=== PATIENT | female | born 1975 | race Caucasian/White ===

== ENCOUNTER 2016-10-13 08:29 | Day surgery (SDC) | payer OTHER ==
[~2016-10-13] VITALS: Ht 165.1 cm; Wt 80.3 kg
[2016-10-13 10:07] VITALS: Ht 165.1 cm; Wt 80.3 kg
[2016-10-13 10:39] VITALS: BP 124/72; PULSE 88; RESP 16
[2016-10-13] MEDS ORDERED: OMEP40CA6 PO (10:40)
[2016-10-13] MEDS ORDERED: FENTAnyl 50 MCG/ML VIAL ONE (11:21)
[2016-10-13] MEDS ORDERED: MIDAZOLAM 1 MG/ML 2 ML INJ ONE ×4 (11:21)
[2016-10-13 11:45] VITALS: BP 117/75; PULSE 76; RESP 18
[2016-10-13 12:00] VITALS: BP 108/68; PULSE 69; RESP 18
--- NOTE | 2016-10-13 17:12 | GILP ---
DATE OF PROCEDURE: PROCEDURE PERFORMED: EGD with biopsy. INDICATION: A 40-year-old female undergoing this procedure for persistent abdominal pain and heartb urn. The purpose is to evaluate upper GI tract and find out the cause of her symptoms. INFORMED CONSENT: The risk of the procedure, related and unrelated complications, anesthetic risks, alternatives discussed and informed consent was obtained. DESCRIPTION OF PROCEDURE: The patient was brought to the GI lab, sedated with 7 mg of Versed and 10 0 mg of fentanyl. After optimal sedation, scope was passed with much ease into esophagus, which was grossly within normal limits. Z line was at 37 cm, which was regular. Stomach mucosa revealed mil d gastritis. Multiple biopsies obtained. Duodenum, first and second part including ampulla, appear ed normal. Villi also were normal. Retroversion done in the stomach. No gross lesion was identifi ed. Scope was straightened out and removed with good patient tolerance. IMPRESSION: 1. Gastritis. 2. Normal esophagus. 3. Z line at 37 cm, which was normal. 4. Normal duodenum. PLAN: Review histopathology. We need to find out some other cause for her abdominal pain. Dictated By: YAMINI PATEL/SONJA Conf#: [id number] DID#: [id number] CC: YAMINI VIVAS MD;*EndCC*
== END 2016-10-13 11:53 | disposition home or self-care (01) ==
LOC: SDS 08:29 → GIL 08:29 → SDS 08:36
PROVIDERS: ATTEND Internal Medicine Gastroenterology
DX: K29.50 Unspecified chronic gastritis without bleeding (principal)
CPT/HCPCS: 43239; 84703; 88305; 88312; J2250; J3010; Z7610

== ENCOUNTER 2016-12-17 08:26 | Emergency (ER) | payer OTHER ==
[~2016-12-17] VITALS: Wt 77.0 kg
[~2016-12-17 08:26] MED LIST: OMEP40CA6 PO
[2016-12-17] MEDS ORDERED: ONDANSETRON (ODT) 4 MG TAB ODT STA (09:33)
[2016-12-17] MEDS ORDERED: KETOROLAC 30 MG INJ IM STA (09:33)
[2016-12-17 09:45] LABS: URINE BLOOD (Dip) POC 3+ (NEGATIVE)
--- NOTE | 2016-12-17 10:01 | ERD ---
ER Documentation Chief Complaint Date/Time DATE: 12/17/16 TIME: 09:58 Chief Complaint HEADACHE X5 DAYS, HX OF MIGRAINE HPI This is a 41-year-old female who presents to the emergency department today complaining of a headache for the past several days. Patient states she has a history of migraines. States that she is to take amitriptyline from her doctor but changed over to Excedrin because amitriptyline was not working. States she took Excedrin last night with no improvement. Patient states she has some light sensitivity, noise sensitivity and some nausea. Denies any fevers or chills, blurred vision ROS All systems reviewed and are negative except as per history of present illness. Medications Home Meds Active Scripts Naproxen* (Naprosyn*) 500 Mg Tablet, 500 MG PO BID Y for PAIN AND/OR INFLAMMATION, #30 TAB Prov:GOLDIE SORIANO PA-C 12/17/16 Acetamin/Butalbital/Caffeine* (Fioricet*) [id number] Tab, 1 TAB PO Q6H Y for PAIN, #30 TAB Prov:GOLDIE SORIANO PA-C 12/17/16 Reported Medications Omeprazole* (Omeprazole*) 40 Mg Capsule.dr, 40 MG PO DAILY, #30 CAP 10/13/16 Allergies Allergies: Coded Allergies: Penicillins (Verified Allergy, Mild, 12/17/16) amoxicillin (Verified Allergy, Mild, 12/17/16) PMhx/Soc History of Surgery: Yes (breast implants and btl) Anesthesia Reaction: Yes (nausea and vomiting) Hx Neurological Disorder: Yes (migrane ) Hx Respiratory Disorders: No Hx Cardiac Disorders: No Hx Psychiatric Problems: No Hx Miscellaneous Medical Probl: No Hx Alcohol Use: Yes (socially) Hx Substance Use: No Hx Tobacco Use: No Smoking Status: Never smoker Physical Exam Vitals Vital Signs Date Time Temp Pulse Resp B/P Pulse Ox O2 Delivery O2 Flow Rate FiO2 12/17/16 08:30 97.8 67 18 138/81 100 Physical Exam Const: Talkative, no acute distress Head: Atraumatic Eyes: Normal Conjunctiva. PERRLA. EOM intact. ENT: Normal External Ears, Nose and Mouth. Neck: Full range of motion..~ No meningismus. Resp: Clear to auscultation bilaterally Cardio: Regular rate and rhythm, no murmurs Abd: Soft, non tender, non distended. Normal bowel sounds Skin: No petechiae or rashes Neur: Awake and alert. Cranial nerves II through XII intact. No gait ataxia. Psych: Normal Mood and Affect Results 24 hrs Laboratory Tests Test 12/17/16 09:48 Bedside Urine Blood 3+ Bedside Urine Glucose (UA) Negative Bedside Urine Ketones (LAB) Negative Bedside Urine Leukocyte Esterase (L Negative Bedside Urine Nitrite (LAB) Negative Bedside Urine Protein (LAB) Negative Bedside Urine pH (LAB) 6.0 Current Medications Medications (Trade) Dose Ordered Sig/Regis Route PRN Reason Start Time Stop Time Status Last Admin Dose Admin Ketorolac Tromethamine (Toradol) 30 mg ONCE STAT IM 12/17/16 09:33 12/17/16 09:35 DC 12/17/16 09:45 Ondansetron HCl (Zofran Odt) 4 mg ONCE STAT ODT 12/17/16 09:33 12/17/16 09:35 DC 12/17/16 09:45 Diphenhydramine HCl (Benadryl) 12.5 mg ONCE ONCE IV 12/17/16 10:30 12/17/16 10:31 DC 12/17/16 10:36 Metoclopramide HCl 10 mg 10 mg ONCE ONCE IV 12/17/16 10:30 12/17/16 10:31 DC 12/17/16 10:35 Sodium Chloride (NS) 1,000 ml @ 1,000 mls/hr Q1H ONCE IV 12/17/16 10:30 12/17/16 11:29 DC 12/17/16 10:35 Procedures/MDM This is a 41-year-old female who presents to the emergency department today complaining of a headache for the past several days. Patient has a history of migraines. Given patient's history and the fact that she has no focal neurologic deficits and no gait ataxia I do not feel that she requires a head CT scan at this time. Low suspicion for acute hemorrhage, mass, or abscess. UA is negative for infection. There is 3+ blood. Patient indicated she was on her menstrual cycle currently. test is negative. Patient symptoms at this time is consistent with migraine headache. Patient was given a Toradol injection as well as Zofran here in the emergency department however headache persisted. I discussed the patient with Dr. Nina he recommended giving her IV fluids, Benadryl and Reglan. She reported feeling significantly better after this treatment. Patient will be given a prescription for Naprosyn, Fioricet for home. She has been instructed to follow back up with her primary care physician for possible referral to neurology. I will give her a list of resources for neurology. At this time the patient is stable for discharge and outpatient management. Patient should follow up with their PCP in the next 1-2 days. They may return to the emergency department sooner for any persistent or worsening of symptoms. Patient understood and agreed with the plan. Departure Diagnosis: Primary Impression: Headache Headache type: unspecified Headache chronicity pattern: unspecified pattern Intractability: not intractable Qualified Code: R51 - Nonintractable headache, unspecified chronicity pattern, unspecified headache type Condition: GOLDIE Ansari PA-C Dec 17, 2016 10:00
[2016-12-17] MEDS ORDERED: SOD CHLORIDE 0.9% 1,000 ML IV ONE (10:30)
[2016-12-17] MEDS ORDERED: METOCLOPRAMIDE 10 MG INJ IV ONE (10:30)
[2016-12-17] MEDS ORDERED: DIPHENHYDRAMINE 50 MG INJ IV ONE (10:30)
[2016-12-17] MEDS ORDERED: FIORICET PO (11:58)
[2016-12-17] MEDS ORDERED: NAPR-260 PO (11:59)
[2016-12-17 12:10] VITALS: BP 112/62; PULSE 75; RESP 18; TEMP 98.4
== END 2016-12-17 12:11 | disposition home or self-care (01) ==
LOC: FTE 08:26
DX: R51 Headache (principal); R11.0 Nausea
CPT/HCPCS: 81003; 96372; 96374; 96375; J1200; J1885; J2765; J7030; Z7502; Z7610

== ENCOUNTER 2017-02-15 06:55 | Emergency (ER) | payer OTHER ==
[~2017-02-15] VITALS: Ht 160 cm; Wt 76.0 kg
[~2017-02-15 06:55] MED LIST changes: +FIORICET PO; +NAPR-260 PO
[2017-02-15 06:57] VITALS: Ht 160 cm; Wt 76.0 kg
[2017-02-15] MEDS ORDERED: ONDANSETRON (ODT) 4 MG TAB ODT STA (07:22)
[2017-02-15] MEDS ORDERED: ACETAMINOPHEN 500 MG TAB PO STA (07:26)
--- NOTE | 2017-02-15 07:42 | ERD ---
ER Documentation Chief Complaint Date/Time DATE: 02/15/17 TIME: 07:35 Chief Complaint fever , vomiting , sore throat HPI This a 41-year-old female who presents the emergency department today complaining of sore throat,, headache vomiting, and itchiness on her skin from bug bites that started last night. Patient states that she was in [place] and went back to her home country of [facility] for the last week. States that she has gone to the bathroom multiple times but denies any diarrhea. States she has some crampy abdominal pain. States she felt chilled but denies any fevers, joint pain. Denies any dysuria. ROS All systems reviewed and are negative except as per history of present illness. Medications Home Meds Active Scripts Ciprofloxacin Hcl* (Ciprofloxacin Hcl*) 500 Mg Tablet, 500 MG PO BID for 3 Days , TAB Prov:GOLDIE SORIANO PA-C 02/15/17 Cetirizine Hcl* (Zyrtec*) 10 Mg Capsule, 10 MG PO DAILY, #10 TAB.CHEW Prov:GOLDIE SORIANO PA-C 02/15/17 Acetaminophen* (Tylophen*) 500 Mg Capsule, 1 CAP PO Q6H Y for PAIN AND OR ELEVATED TEMP, #30 CAP Prov:GOLDIE SORIANO PA-C 02/15/17 Ibuprofen* (Motrin*) 600 Mg Tab, 600 MG PO Q6, #30 TAB Prov:GOLDIE SORIANO PA-C 02/15/17 Electrolyte,Oral (Pedialyte) 1,000 Ml Solution, 100 ML PO Q6 Y for vomiting, # 1000 ML Prov:GOLDIE SORIANO PA-C 02/15/17 Hydrocortisone* Topical (Hydrocortisone* Topical) 1%-28.35 Gm Cream..g., 1 APPLIC TOP Q6 Y for ITCHING, #1 TUB Prov:GOLDIE SORIANO PA-C 02/15/17 Ondansetron Hcl* (Zofran*) 4 Mg Tablet, 4 MG PO Q6H for NAUSEA AND/OR VOMITING, #30 TAB Prov:GOLDIE SORIANO PA-C 02/15/17 Diphenhydramine Hcl* (Benadryl*) 25 Mg Cap, 25 MG PO Q6, #30 CAP Prov:GOLDIE SORIANO PA-C 02/15/17 Naproxen* (Naprosyn*) 500 Mg Tablet, 500 MG PO BID Y for PAIN AND/OR INFLAMMATION, #30 TAB Prov:GOLDIE SORIANO PA-C 12/17/16 Acetamin/Butalbital/Caffeine* (Fioricet*) [id number] Tab, 1 TAB PO Q6H Y for PAIN, #30 TAB Prov:GOLDIE SORIANO PA-C 12/17/16 Reported Medications Omeprazole* (Omeprazole*) 40 Mg Capsule.dr, 40 MG PO DAILY, #30 CAP 10/13/16 Allergies Allergies: Coded Allergies: Penicillins (Verified Allergy, Mild, 12/17/16) amoxicillin (Verified Allergy, Mild, 12/17/16) PMhx/Soc History of Surgery: Yes (breast implants and btl) Anesthesia Reaction: Yes (nausea and vomiting) Hx Neurological Disorder: Yes (migrane ) Hx Respiratory Disorders: No Hx Cardiac Disorders: No Hx Psychiatric Problems: No Hx Miscellaneous Medical Probl: No Hx Alcohol Use: Yes (socially) Hx Substance Use: No Hx Tobacco Use: No Physical Exam Vitals Vital Signs Date Time Temp Pulse Resp B/P Pulse Ox O2 Delivery O2 Flow Rate FiO2 02/15/17 06:57 98.1 79 16 127/77 98 Physical Exam Const: Nontoxic-appearing Head: Atraumatic Eyes: Normal Conjunctiva ENT: Ears TMs normal. Nose no drainage. Throat no erythema no exudate. Drainage posterior pharynx peer Neck: Full range of motion..~ No meningismus. Resp: Clear to auscultation bilaterally Cardio: Regular rate and rhythm, no murmurs Abd: Soft, crampy periumbilical tenderness non distended. Normal bowel sounds no right lower quadrant pain. No tenderness McBurney's. No left lower quadrant pain. Skin: No petechiae or rashes. Multiple small bug bite on left arm Neur: Awake and alert Psych: Normal Mood and Affect Results 24 hrs Current Medications Medications (Trade) Dose Ordered Sig/Regis Route PRN Reason Start Time Stop Time Status Last Admin Dose Admin Ondansetron HCl (Zofran Odt) 4 mg ONCE STAT ODT 02/15/17 07:22 02/15/17 07:24 DC 02/15/17 07:26 Acetaminophen (Tylenol Tab) 500 mg ONCE STAT PO 02/15/17 07:26 02/15/17 07:27 DC 02/15/17 07:28 Procedures/MDM This a 41-year-old female who presents to the emergency department today with multiple complaints. Patient stated that she turned from [facility] last night when she started noticing the symptoms. On physical exam patient appears to have more crampy abdominal pain however she has no focal tenderness in the right lower quadrant and no tenderness McBurney's. She has no left lower quadrant pain. Low suspicion for acute surgical abdomen. Patient is not actively vomiting however I will give her Zofran and a p.o. challenge here in the emergency department. Patient's ENT exam is benign with the exception that the patient has laryngitis. I have seen this patient in the past and she did follow-up with her doctor in regards to her laryngitis but was never referred. Patient does have some drainage in her posterior pharynx and it may be secondary to allergic rhinitis however I have given patient a referral information for ENT specialist to further evaluate the laryngitis. Patient denies any difficulty swallowing. Patient also has multiple insect bites that were noticed on her left arm. Patient is afebrile and otherwise well-appearing. She has no rash or joint pain. She has no evidence of conjunctivitis and have low suspicion that patient has contracted Zika virus of [place] or dengue. Patient was given Zofran, Tylenol and a p.o. challenge here in the emergency department. Patient was not actively vomiting. Prior to discharge patient was complaining of a headache. Patient was given a prescription for Zyrtec, Motrin, Pedialyte, Zofran, Tylenol. Given that patient has recently traveled out of the country I did give the patient a prescription for Cipro and explained to her that she should only take the Cipro if she develops diarrhea. Patient was also given a prescription for Benadryl and hydrocortisone cream for her insect bites. I did not give patient Benadryl here in the emergency department as she was driving herself At this time the patient is stable for discharge and outpatient management. Patient should follow up with their PCP in the next 1-2 days. They may return to the emergency department sooner for any persistent or worsening of symptoms. Patient understood and agreed with the plan. Departure Diagnosis: Primary Impression: Multiple complaints Condition: GOLDIE Ansari PA-C February 15, 2017 07:42
[2017-02-15] MEDS ORDERED: ONDA4TAB8 PO (08:41)
[2017-02-15] MEDS ORDERED: BEN25 PO (08:41)
[2017-02-15] MEDS ORDERED: HC1C30 TOP (08:42)
[2017-02-15] MEDS ORDERED: ELEC100080 PO (08:42)
[2017-02-15] MEDS ORDERED: ACET500C5 PO (08:43)
[2017-02-15] MEDS ORDERED: IBUP-1542 PO (08:43)
[2017-02-15] MEDS ORDERED: CIPR500T4 PO (08:44)
[2017-02-15] MEDS ORDERED: CETI10CA PO (08:44)
== END 2017-02-15 08:56 | disposition home or self-care (01) ==
LOC: FTE 06:55
DX: R50.9 Fever, unspecified (principal); R11.10 Vomiting, unspecified; J02.9 Acute pharyngitis, unspecified; R51 Headache; S40.862A Insect bite (nonvenomous) of left upper arm, initial encounter; W57.XXXA Bitten or stung by nonvenomous insect and other nonvenomous arthropods, initial encounter; Y92.9 Unspecified place or not applicable
CPT/HCPCS: Z7502; Z7610; 99284

== ENCOUNTER 2017-09-25 08:22 | Emergency (ER) | payer OTHER ==
[~2017-09-25] VITALS: Ht 162.6 cm; Wt 76.0 kg
[~2017-09-25 08:22] MED LIST changes: +ACET500C5 PO; +BEN25 PO; +CETI10CA PO; +CIPR500T4 PO; +ELEC100080 PO; +HC1C30 TOP; +IBUP-1542 PO; +ONDA4TAB8 PO
[2017-09-25 08:25] VITALS: Ht 162.6 cm; Wt 76.0 kg
[2017-09-25] MEDS ORDERED: DIPHENHYDRAMINE 50 MG INJ IV ONE (10:30)
[2017-09-25] MEDS ORDERED: METOCLOPRAMIDE 10 MG INJ IV ONE (10:30)
[2017-09-25 10:54] LABS: URINE BLOOD (Dip) POC Trace-intact (NEGATIVE)
--- NOTE | 2017-09-25 10:54 | ERD ---
ER Documentation Chief Complaint Chief Complaint vomiting since last night , rt side headcahe HPI 41-year-old female who presents emergency department for right-sided headache that started gradually with unknown specific time and date of onset, vomiting since last night. Stated that she has this kind of headache before when she has her migraine attacks. Also complains of nasal congestion, throat pain. Also added that she usually gets some IV fluids, Reglan, Benadryl for her migraine attacks. Denies head trauma, that this is the worst headache of her life, neck pain, neck stiffness, difficulty swallowing, shoulder pain, chest pain, back pain, abdominal pain, constipation, diarrhea, loss of bowel and bladder control, urinary symptoms, or possibility of being , trauma, injury, falls, recent long travel, recent travel, difficulty breathing when lying flat, recent antibiotic use in the last 3 months, recent exposure to any illness, difficulty walking, numbness or tingling sensation. Stated that she has past medical history of anemia, migraine. Surgical history of breast implants. ROS All systems reviewed and are negative except as per history of present illness. Medications Home Meds Active Scripts Meclizine Hcl* (Antivert*) 12.5 Mg Tab, 12.5 MG PO Q6H Y for DIZZINESS, #20 TAB Prov:RAMÍREZ SCHMITT 09/25/17 Diphenhydramine Hcl* (Benadryl*) 25 Mg Cap, 25 MG PO Q8 Y for ITCHING/RASH, #30 TAB Prov:RAMÍREZ SCHMITT 09/25/17 Metoclopramide* (Reglan*) 10 Mg Tablet, 10 MG PO Q8 Y for NAUSEA AND/OR VOMITING , #20 TAB Prov:PASILARAMÍREZ FOSTER 09/25/17 Ibuprofen* (Motrin*) 800 Mg Tab, 800 MG PO Q8 Y for PAIN AND OR ELEVATED TEMP, # 20 TAB Prov:RAMÍREZ SCHMITT 09/25/17 Acetaminophen* (Tylophen*) 500 Mg Capsule, 1 CAP PO Q6H Y for PAIN AND OR ELEVATED TEMP, #20 CAP Prov:RAMÍREZ SCHMITT 09/25/17 Azithromycin* (Zithromax*) 250 Mg Tablet, 250 MG PO .JaninePACK DIRECTED, #6 TAB TAKE 500 MG (2 TABS) THE FIRST DAY THEN 250 MG (1 TAB) DAYS 2-5 Prov:RAMÍREZ SCHMITT 09/25/17 Ciprofloxacin Hcl* (Ciprofloxacin Hcl*) 500 Mg Tablet, 500 MG PO BID for 3 Days , TAB Prov:GOLDIE SORIANO PA-C 02/15/17 Cetirizine Hcl* (Zyrtec*) 10 Mg Capsule, 10 MG PO DAILY, #10 TAB.CHEW Prov:GOLDIE SORIANO PA-C 02/15/17 Acetaminophen* (Tylophen*) 500 Mg Capsule, 1 CAP PO Q6H Y for PAIN AND OR ELEVATED TEMP, #30 CAP Prov:GOLDIE SORIANO PA-C 02/15/17 Ibuprofen* (Motrin*) 600 Mg Tab, 600 MG PO Q6, #30 TAB Prov:GOLDIE SORIANO PA-C 02/15/17 Electrolyte,Oral (Pedialyte) 1,000 Ml Solution, 100 ML PO Q6 Y for vomiting, # 1000 ML Prov:GOLDIE SORIANO PA-C 02/15/17 Hydrocortisone* Topical (Hydrocortisone* Topical) 1%-28.35 Gm Cream..g., 1 APPLIC TOP Q6 Y for ITCHING, #1 TUB Prov:GOLDIE SORIANO PA-C 02/15/17 Ondansetron Hcl* (Zofran*) 4 Mg Tablet, 4 MG PO Q6H for NAUSEA AND/OR VOMITING, #30 TAB Prov:GOLDIE SORIANO PA-C 02/15/17 Diphenhydramine Hcl* (Benadryl*) 25 Mg Cap, 25 MG PO Q6, #30 CAP Prov:GOLDIE SORIANO PA-C 02/15/17 Naproxen* (Naprosyn*) 500 Mg Tablet, 500 MG PO BID Y for PAIN AND/OR INFLAMMATION, #30 TAB Prov:GOLDIE SORIANO PA-C 12/17/16 Acetamin/Butalbital/Caffeine* (Fioricet*) [id number] Tab, 1 TAB PO Q6H Y for PAIN, #30 TAB Prov:GOLDIE SORIANO PA-C 12/17/16 Reported Medications Omeprazole* (Omeprazole*) 40 Mg Capsule.dr, 40 MG PO DAILY, #30 CAP 10/13/16 Allergies Allergies: Coded Allergies: Penicillins (Verified Allergy, Mild, 09/25/17) amoxicillin (Verified Allergy, Mild, 09/25/17) PMhx/Soc History of Surgery: Yes (breast implants and btl) Anesthesia Reaction: Yes (nausea and vomiting) Hx Neurological Disorder: Yes (migrane ) Hx Respiratory Disorders: No Hx Cardiac Disorders: No Hx Psychiatric Problems: No Hx Miscellaneous Medical Probl: No Hx Alcohol Use: Yes (socially) Hx Substance Use: No Hx Tobacco Use: No Smoking Status: Never smoker Physical Exam Vitals Vital Signs Date Time Temp Pulse Resp B/P Pulse Ox O2 Delivery O2 Flow Rate FiO2 09/25/17 08:25 98.2 65 18 115/65 100 Physical Exam Const: Well-appearing. In mild distress due to her pain. Head: Atraumatic Eyes: Normal Conjunctiva. No pain in eye movement. Extraocular movement of her eyes within normal limits. No visible field loss. ENT: Normal External Ears, Nose and Mouth. Throat: Uvula is in midline not displaced. Tonsils are +1 bilaterally with redness but no exudates. Tolerating secretions. Patent airway. Speaks full and clear sentences. Neck: Full range of motion..~ No meningismus. No neck stiffness. No signs of meningeal irritation. Resp: Clear to auscultation bilaterally Cardio: Regular rate and rhythm, no murmurs Abd: Soft, non tender, non distended. Normal bowel sounds. There is no right upper/right lower/epigastric/left upper/left lower abdominal tenderness and likely palpation. Negative and psoas sign. Negative on Digna sign (heel jar test). Negative on Rovsing sign. Able to jump twice without developing abdominal pain. Skin: No petechiae or rashes Back: No midline or flank tenderness. No CVA tenderness. Ext: No cyanosis, or edema Neur: Awake and alert. No neurological deficits. Romberg test negative. Psych: Normal Mood and Affect Results 24 hrs Laboratory Tests Test 09/25/17 10:54 Bedside Urine pH (LAB) 6.5 Bedside Urine Protein (LAB) Negative Bedside Urine Glucose (UA) Negative Bedside Urine Ketones (LAB) Negative Bedside Urine Blood Trace-intact Bedside Urine Nitrite (LAB) Negative Bedside Urine Leukocyte Esterase (L Negative Current Medications Medications (Trade) Dose Ordered Sig/Regis Route PRN Reason Start Time Stop Time Status Last Admin Dose Admin Metoclopramide HCl (Reglan) 10 mg ONCE ONCE IV 09/25/17 10:30 09/25/17 10:31 DC 09/25/17 10:55 Diphenhydramine HCl 25 mg 25 mg ONCE ONCE IV 09/25/17 10:30 09/25/17 10:31 DC 09/25/17 10:55 Sodium Chloride (NS) 1,000 ml @ 1,000 mls/hr Q1H ONCE IV 09/25/17 11:00 09/25/17 11:59 DC 09/25/17 10:55 Procedures/MDM Treatment: IV insertion. Normal saline IV 1 L bolus. Reglan IV. Benadryl IV. Reevaluation: Denies headache, neck pain, neck stiffness, difficulty swallowing , chest pain, back pain, abdominal pain. No episode of emesis here in the emergency department. No abdominal tenderness. Stated that she feels much better this time and is ready to go home. POC urine : Negative. POC urine dip: Reviewed. Differential diagnosis: I have low suspicion for stroke, subarachnoid hemorrhage , meningitis, severe or serious bacterial infection, peritonsillar abscess, pneumonia, appendicitis, pancreatitis, diverticulitis, diverticulosis, nephrolithiasis, pyelonephritis given that the patient stated that this is not the worst headache of her life, and the patient has no neurological deficits, shoulder stated that this is the same symptoms as she had her previous migraine attacks, oral airway is no obstruction and she is able to swallow, there is no abdominal tenderness, she was relieved of the treatment. Final diagnosis: Bronchitis, migraine attack, sinusitis. Prescription: Azithromycin. Tylenol. Motrin. Reglan. Benadryl. Antivert. Follow-up with PCP in the next 3-4 days. Come back here in the emergency department for any new symptoms or any worsening of symptoms. All questions and concerns are answered. Patient verbalized understanding and agreed with the plan of care. Hemodynamically stable on discharge. Departure Diagnosis: Primary Impression: Bronchitis Additional Impressions: Migraine Sinusitis Condition: Stable Additional Instructions: Follow-up with PCP in the next 3-4 days. Come back here in the emergency department for any new symptoms or any worsening of symptoms. All questions and concerns are answered. Patient verbalized understanding and agreed with the plan of care. RAMÍREZ SCHMITT Sep 25, 2017 10:54
[2017-09-25] MEDS ORDERED: SOD CHLORIDE 0.9% 1,000 ML IV ONE (11:00)
[2017-09-25] MEDS ORDERED: METO10TA92 PO (11:26)
[2017-09-25] MEDS ORDERED: IBUP800T25 PO (11:26)
[2017-09-25] MEDS ORDERED: ACET500C5 PO (11:26)
[2017-09-25] MEDS ORDERED: AZIT250T94 PO (11:26)
[2017-09-25] MEDS ORDERED: MECL12.574 PO (11:27)
[2017-09-25] MEDS ORDERED: BEN25 PO (11:27)
== END 2017-09-25 12:02 | disposition home or self-care (01) ==
LOC: FTE 08:22
DX: J20.9 Acute bronchitis, unspecified (principal); G43.909 Migraine, unspecified, not intractable, without status migrainosus; J32.9 Chronic sinusitis, unspecified
CPT/HCPCS: 81003; 96374; 96375; J1200; J2765; J7030; Z7502

== ENCOUNTER 2017-10-28 14:35 | Day surgery (SDC) | END 2017-10-28 19:03 | disposition home or self-care (01) ==

== ENCOUNTER 2018-08-19 08:47 | Day surgery (SDC) | END 2018-08-19 13:50 | disposition home or self-care (01) ==

== ENCOUNTER 2018-08-27 20:42 | Emergency (ER) | END 2018-08-27 23:32 | disposition home or self-care (01) ==

== ENCOUNTER 2019-01-14 21:04 | Emergency (ER) | payer OTHER ==
[~2019-01-14] VITALS: Ht 165.1 cm; Wt 81.4 kg
[~2019-01-14 21:04] MED LIST changes: -ACET500C5 PO; -BEN25 PO; -CETI10CA PO; -CIPR500T4 PO; -ELEC100080 PO; -FIORICET PO; -HC1C30 TOP; -NAPR-260 PO; -ONDA4TAB8 PO
[2019-01-14 21:07] VITALS: Ht 165.1 cm; Wt 81.4 kg
[2019-01-14] MEDS ORDERED: METOCLOPRAMIDE 10 MG INJ IV STA (23:31)
[2019-01-14] MEDS ORDERED: DIPHENHYDRAMINE 50 MG INJ IV STA (23:31)
[2019-01-14] MEDS ORDERED: ONDANSETRON 4 MG INJ IV STA (23:31)
[2019-01-14] MEDS ORDERED: SOD CHLORIDE 0.9% 1,000 ML IV STA (23:31)
[2019-01-14] MEDS ORDERED: KETOROLAC 30 MG INJ IV STA (23:31)
[2019-01-15] MEDS ORDERED: IBUP-1561 PO (01:00)
--- NOTE | 2019-01-15 01:04 | ERD ---
ER Documentation Chief Complaint Chief Complaint states migraine headache x 1 week, worse today HPI This is a 43-year-old female with past medical history of migraine headaches presents to the ED for progressively worsening headache times 1 week. Patient states headache is pulsating in nature and localized to her right parietal scalp. She reports associated phonophobia and photophobia. Denies any nausea, vomiting, focal weakness, numbness, tingling or any other symptoms. Patient states her last migraine headache was 7 months ago and today symptoms are similar. No known exacerbating or relieving factors. ROS All systems reviewed and are negative except as per history of present illness. Medications Home Meds Active Scripts Ibuprofen* (Motrin*) 400 Mg Tab, 400 MG PO Q6H PRN for PAIN AND OR ELEVATED TEMP, #30 TAB Prov:KAYLA HUNT PA-C 01/15/19 Ibuprofen* (Motrin*) 600 Mg Tab, 600 MG PO Q6, #30 TAB Prov:GENIE COSTELLO PA-C 08/27/18 Reported Medications Omeprazole* (Omeprazole*) 40 Mg Capsule.dr, 40 MG PO DAILY, #30 CAP 10/27/17 Allergies Allergies: Coded Allergies: Penicillins (Verified Allergy, Mild, 08/27/18) amoxicillin (Verified Allergy, Mild, 08/27/18) acetaminophen (Verified Allergy, Unknown, nausea, dizziness,sob, 08/27/18) hydrocodone (Verified Allergy, Unknown, nausea, dizziness,sob, 08/27/18) PMhx/Soc History of Surgery: Yes (breast implant, lt hand mass removal ,left groin cyst removed) Anesthesia Reaction: No Hx Neurological Disorder: No Hx Respiratory Disorders: No Hx Cardiac Disorders: No Hx Psychiatric Problems: No Hx Miscellaneous Medical Probl: No Hx Alcohol Use: Yes (socially) Hx Substance Use: No Hx Tobacco Use: Yes Smoking Status: Never smoker Physical Exam Vitals Vital Signs Date Temp Pulse Resp B/P (MAP) Pulse Ox O2 O2 Flow FiO2 Time Delivery Rate 01/14/19 97.2 68 18 125/69 100 21:07 (87) Physical Exam Const: No acute distress Head: Atraumatic Eyes: Normal Conjunctiva ENT: Normal External Ears, Nose and Mouth. Neck: Full range of motion. No meningismus. Resp: Clear to auscultation bilaterally Cardio: Regular rate and rhythm, no murmurs Abd: Soft, non tender, non distended. Normal bowel sounds Skin: No petechiae or rashes Back: No midline or flank tenderness Ext: No cyanosis, or edema Neuro: M/S: Alert and oriented Face: EOMI, face and pharynx with normal sensation and function Motor: Normal strength throughout Sensation: Normal sensation throughout Speech: Normal Cerebel: Normal coordination Normal gait Normal finger to nose DTR: 2+ and symmetric upper/lower extremities Psych: Normal Mood and Affect Results 24 hrs Current Medications Medications Dose Sig/Regis Start Time Status Last (Trade) Ordered Route PRN Stop Time Admin Dose Reason Admin Sodium 1,000 ml @ Q1H STAT 01/14/19 DC 01/14/19 Chloride 1,000 mls/hr IV 23:31 01/15/19 23:46 00:30 10 mg ONCE STAT 01/14/19 DC 01/14/19 Metoclopramid IV 23:31 01/14/19 23:44 e HCl 23:33 (Reglan) Ondansetron 4 mg ONCE STAT 01/14/19 DC 01/14/19 HCl (Zofran IV 23:31 01/14/19 23:44 Inj) 23:33 Ketorolac 15 mg ONCE STAT 01/14/19 DC 01/14/19 Tromethamine IV 23:31 01/14/19 23:45 (Toradol) 23:33 25 mg ONCE STAT 01/14/19 DC 01/14/19 Diphenhydrami IV 23:31 01/14/19 23:44 ne HCl 23:33 (Benadryl) Procedures/MDM ED course: Patient treated with IV fluids, IV Toradol, Benadryl and Reglan with improvement of her symptoms. MDM: This is a 43-year-old female with history of migraine headaches presents to the ED with exacerbation of her previous migraine headaches. History and physical most consistent with primary headache. Vital signs are stable. No focal neurological deficits on physical exam. Clinical presentation not consistent with subarachnoid hemorrhage, epidural or subdural hematoma, IC mass, CVA, encephalitis or meningitis. Symptoms improved status post IV fluids, Toradol, Benadryl and Reglan as above. Patient was discharge home with close follow up and mangement by PCP in 48 hours. Strict return precautions dicussed. Prescriptions: Ibuprofen. Departure Diagnosis: Primary Impression: Migraine Migraine type: unspecified Status migrainosus presence: without status migrainosus Intractability: not intractable Qualified Codes: G43.909 - Migraine, unspecified, not intractable, without status migrainosus Condition: Stable Patient Instructions: Headache, Migraine (Classical) Referrals: [facility] (PCP) Additional Instructions: Please follow-up with your regular doctor for further management of your migraine headaches. He may need stronger medications to help with these headaches. Stay away from any stressful activities that may be causing her headaches. Return here for any new or worsening symptoms. KAYLA HUNT PA-C Jan 15, 2019 01:04
[2019-01-15 01:11] VITALS: BP 107/63; PULSE 65; RESP 18
== END 2019-01-15 01:13 | disposition home or self-care (01) ==
LOC: FTE 21:04
DX: G43.909 Migraine, unspecified, not intractable, without status migrainosus (principal); Z87.891 Personal history of nicotine dependence
CPT/HCPCS: 96361; 96374; 96375; J1200; J1885; J2405; J2765; J7030; Z7502

== ENCOUNTER 2019-03-23 06:45 | Day surgery (SDC) | payer OTHER ==
--- NOTE | 2019-03-22 20:47 | PREOPHP ---
DATE OF ADMISSION: 03/23/2019 HISTORY OF PRESENT ILLNESS: A 43-year-old female patient with a long history of nasal obstruction to breathing. She sustained a nasal fracture in 08/2018. She presents to the office with evidence of an old nasal fracture with septal deviation. She is now admitted to the hospital for corrective nasa l surgery. The patient underwent a CAT scan of the sinuses to prior surgery which was unremarkable. PAST MEDICAL HISTORY: ALLERGIES: AMOXICILLIN. MEDICAL CONDITIONS: None. DAILY MEDICATIONS: 1. Omeprazole. 2. Tylenol. 3. Advil. PRIOR SURGERY: Breast implants. CLOTTING DISORDERS: None. HABITS: Alcohol: Social. Tobacco: Social. Recreational drugs: None. PHYSICAL EXAMINATION: GENERAL: Well-developed, well-nourished female patient in no acute distress. HEAD: Normocephalic. No masses or deformities. EARS AND TYMPANIC MEMBRANES: There is evidence of old nasal fracture with septal deviation and turbi sun hypertrophy. Oropharynx is clear. NECK: No masses or adenopathy. CHEST: Clear to P and A. HEART: Regular sinus rhythm without murmur. ABDOMEN: Soft. Bowel sounds are normal. No masses or megaly. EXTREMITIES: Full range of motion without deformity. NEUROLOGIC: Physiologic. PELVIC AND RECTAL: Not done. IMPRESSION: 1. Septal deviation. 2. Turbinate hypertrophy. RECOMMENDATIONS: Admit for surgery to include septoplasty and turbinate reduction. Dictated By: CARLITOS VELAZQUEZ/NTS Conf#: [id number] DID#: [id number]
[~2019-03-23] VITALS: Ht 165.1 cm; Wt 82.0 kg
[2019-03-23] VITALS (17 sets, daily range): BP systolic 111–122; BP diastolic 63–79; PULSE 63–90; RESP 10–23; Ht 165.1 cm; Wt 82.0 kg
[~2019-03-23 06:45] MED LIST changes: +IBUP-1561 PO
[2019-03-23] MEDS ORDERED: OMEP40CA6 PO (08:28)
[2019-03-23] MEDS ORDERED: LACTATED RINGER'S 1,000 ML IV SCH (10:00)
[2019-03-23] MEDS ORDERED: COCAINE 4% 4 ML TOP ONE (10:03)
--- NOTE | 2019-03-23 10:07 | PREAC ---
Date/Time of Note Date/Time of Note DATE: 03/23/19 TIME: 10:05 Anesthesia Eval and Record Evaluation Time Pre-Procedure Interview DATE: 03/23/19 TIME: 10:05 Age 43 Sex female NPO: 8 hrs Preoperative diagnosis deviated septum Planned procedure septoplasty, turbinate reduction Past Medical History Past Medical History: Includes Musculoskeletal: Other (migraines) GI: GERD, Obesity Heme: Anemia Surgery & Anesthesia Issues No known issue Meds Anticoagulation: No Beta Musa within 24 hr: No Reason Beta Musa not given: Pt. not on B-Musa Reported Medications Omeprazole* (Omeprazole*) 40 Mg Capsule.dr, 40 MG PO DAILY, #30 CAP 03/23/19 Discontinued Reported Medications Omeprazole* (Omeprazole*) 40 Mg Capsule.dr, 40 MG PO DAILY, #30 CAP 10/27/17 Discontinued Scripts Ibuprofen* (Motrin*) 400 Mg Tab, 400 MG PO Q6H PRN for PAIN AND OR ELEVATED TEMP, #30 TAB Prov:KAYLA HUNT PA-C 01/15/19 Ibuprofen* (Motrin*) 600 Mg Tab, 600 MG PO Q6, #30 TAB Prov:GENIE COSTELLO PA-C 08/27/18 Current Medications Lactated Ringer's 1,000 ml @ 25 mls/hr Q24H IV ; Start 03/23/19 at 10:00 Meds reviewed: Yes Allergies Coded Allergies: Penicillins (Verified Allergy, Mild, 03/23/19) amoxicillin (Verified Allergy, Mild, 03/23/19) acetaminophen (Verified Allergy, Unknown, nausea, dizziness,sob, 03/23/19) hydrocodone (Verified Allergy, Unknown, nausea, dizziness,sob, 03/23/19) Allergies Reviewed: Yes Labs/Studies Labs Reviewed: Reviewed by anesthesiologist test: Negative Pre-procedure Exam Last vitals Vital Signs Date Temp Pulse Resp B/P (MAP) Pulse Ox O2 O2 Flow FiO2 Time Delivery Rate 03/23/19 97.2 63 16 122/76 100 Room Air 09:29 (91) Airway: Adequate mouth opening, Adequate thyromental dist Mallampati: Mallampati II Teeth: Normal Lung: Normal Heart: Normal ASA Physical Status ASA physical status: 2 Emergency: None Planned Anesthetic General/MAC: ETT Planned Pain Management Parenteral pain med Pre-operative Attestations Prior to commencing anesthesia and surgery, the patient was re-evaluated, there was verification of: *The patient's identity *The results of appropriate recent lab work and preoperative vital signs *The above evaluation not changing prior to induction *Anesthetic plan, risk benefits, alternative and complications discussed with patient/family; questions answered; patient/family understands, accepts and wishes to proceed. KEYANA GRAVES Mar 23, 2019 10:07
[2019-03-23] MEDS ORDERED: PROPOFOL 100 ML ONE (10:13)
[2019-03-23] MEDS ORDERED: ROCURONIUM 50 MG INJ ONE (10:16)
[2019-03-23] MEDS ORDERED: ONDANSETRON 4 MG INJ ONE (10:48)
[2019-03-23] MEDS ORDERED: LIDOCAINE 2% (SDV) 5 ML INJ ONE (10:48)
[2019-03-23] MEDS ORDERED: DEXAMETHASONE 4 MG/ML 5 ML INJ ONE (10:48)
[2019-03-23] MEDS ORDERED: LIDOCAINE 1%/EPI 30 ML INJ INJ ONE (11:00)
[2019-03-23] MEDS ORDERED: LIDOCAINE 1%/EPI (1:100,000) (MDV) 20 ML INJ ONE (11:00)
[2019-03-23] MEDS ORDERED: NEOSTIGMINE 3 MG/3 ML SYRINGE ONE (11:21)
[2019-03-23] MEDS ORDERED: GLYCOPYRROLATE 0.4 MG INJ ONE (11:21)
--- NOTE | 2019-03-23 11:34 | PAC ---
Date/Time of Note Date/Time of Note DATE: 03/23/19 TIME: 11:33 Post-Anesthesia Notes Post-Anesthesia Note Last documented vital signs Vital Signs Date Temp Pulse Resp B/P (MAP) Pulse Ox O2 O2 Flow FiO2 Time Delivery Rate 03/23/19 97.2 63 16 122/76 100 Room Air 1133 (91) Activity: WNL Respiratory function: WNL Cardiovascular function: WNL Mental status: Baseline Pain reasonably controlled: Yes Hydration appropriate: Yes Nausea/Vomiting absent: Yes KEYANA GRAVES Mar 23, 2019 11:34
--- NOTE | 2019-03-23 11:36 | SIPON ---
Date/Time of Note Date/Time of Note DATE: 03/23/19 TIME: 11:34 Operative Report Preoperative Diagnosis sd turb hyp Postoperative Diagnosis same Operation/Procedure Performed septo turb red Surgeon nonesee signature line real estate executive assistant none Anesthesia: general Estimated blood loss: 0 - 10 ml's Transfusion Required none Specimen to path Grafts/Implants none Complications none CARLITOS SHULTZ MD Mar 23, 2019 11:36
[2019-03-23] MEDS: FENTAnyl 50 MCG/ML VIAL IV PRN ×2 (11:51→12:13)
[2019-03-23] MEDS ORDERED: LABETALOL HCL 20MG INJ IV PRN (12:00)
[2019-03-23] MEDS ORDERED: ALBUTEROL 0.083% (NEB) 2.5 MG/3 ML AMP HHN PRN (12:00)
[2019-03-23] MEDS ORDERED: hydrALAzine 20 MG INJ IV PRN (12:00)
[2019-03-23] MEDS ORDERED: HYDROmorphONE 1 MG/5 ML IV SYRINGE IV PRN ×3 (12:00)
[2019-03-23] MEDS ORDERED: FENTAnyl 50 MCG/ML VIAL IV PRN ×2 (12:00)
[2019-03-23] MEDS ORDERED: MIDAZOLAM 1 MG/ML 2 ML INJ IV PRN (12:00)
[2019-03-23] MEDS ORDERED: METOCLOPRAMIDE 10 MG INJ IV PRN (12:00)
[2019-03-23] MEDS ORDERED: MEPERIDINE 25 MG INJ IV PRN (12:00)
[2019-03-23] MEDS ORDERED: EPHEDrine 25 MG/5 ML SYG IV PRN (12:00)
[2019-03-23] MEDS ORDERED: ONDANSETRON 4 MG INJ IV PRN (12:00)
[2019-03-23] MEDS ORDERED: DIPHENHYDRAMINE 50 MG INJ IV PRN (12:00)
[2019-03-23] MEDS ORDERED: OXYCODONE/ACETAMINOPHEN (5/325) TAB PO PRN ×2 (12:00)
--- NOTE | 2019-04-24 16:55 | OPR ---
DATE OF OPERATION: 03/23/2019 PREOPERATIVE DIAGNOSIS: Septal deviation with turbinate hypertrophy. POSTOPERATIVE DIAGNOSIS: Septal deviation with turbinate hypertrophy. PROCEDURE PERFORMED: Septoplasty with turbinate reduction. OPERATION: The patient brought to the operating room under parenteral sedation, general oral endotra cheal anesthesia, with the patient in the supine position, sterile sheets and drapes applied. Nose a nesthetized topically with 5% cottonoid cocaine and Xylocaine 1% epinephrine 1:100,000 injectable. T he inferior turbinate bones were lightly crushed and outfractured. A left septal hemitransfixion inc ision was made. Septal flaps were elevated bilaterally. The quadrilateral cartilage was detached fr om the crest of the premaxilla and from the bony cartilaginous junction. Strips of cartilage were re moved inferiorly and posteriorly and the remaining cartilage vertically through and through cut. A v omerine spur on the right was mobilized with mallet and chisel and removed with forceps. The septal compartment was then suctioned. The incision was closed with interrupted 4-0 chromic. The nose was packed with Nasopore sponge impregnated with bacitracin ointment. A drip pad was applied. The patie nt then awakened and extubated in the operating room and returned to recovery in excellent condition. ESTIMATED BLOOD LOSS: Nil. COMPLICATIONS: None. Dictated By: CARLITOS VELAZQUEZ/SONJA Conf#: [id number] DID#: [id number]
== END 2019-03-23 13:30 | disposition home or self-care (01) ==
LOC: SDS 06:45
PROVIDERS: ATTEND Otolaryngology Otolaryngology/Facial Plastic Surgery
DX: J34.2 Deviated nasal septum (principal); J34.3 Hypertrophy of nasal turbinates
CPT/HCPCS: 30140; 30520; 88300; J1100; J2175; J2405; J2710; J2765; J3010; Z7512; Z7610